=== PATIENT | female | born 1925 | race Caucasian/White ===

== ENCOUNTER → 2016-03-15 | Outpatient (CLI) | payer MEDICARE ==
[~2016-03-15] MED LIST: ACTO35TA PO; ALEN1TAB48 PO; ALLO100 PO; ASPI1TAB69 PO; ASPI81 PO; CALC600T34 PO; CINN500C PO; CLON0.5T PO; DIATRIZOATE MEGLUM/DIATRIZOATE SOD 120 ML BTL (for RAD DIAG) RECTAL ONE; FISH1000 PO; GLUC500C56 PO; GLUCTAB PO; ICAPCAP PO; MAXZ PO; METO25 PO; MULT-120 PO; NIAC100T3 PO; SIMV20TA PO; TAB-TAB PO; ZOCO80TA PO
--- NOTE | 2016-03-15 10:03 | RADRPT ---
EXAM DATE/TIME: 03/15/2016 09:01 [facility] COMPARISON: No previous studies available for comparison. INDICATIONS : Constipation 2-3 months FLUORO TIME: 2.0 minutes IMAGE COUNT: 17 CONTRAST: 1. G[facility]view MEDICAL HISTORY : Diverticulosis. SURGICAL HISTORY : colonoscopy 2 years ago. ENCOUNTER: Initial ACUITY: 3 months PAIN SCORE: 0/10 LOCATION: Bilateral abdomen FINDINGS: Preliminary film demonstrates surgical clips in the right upper quadrant. Moderate severity bony dege nerative findings of the lumbar spine. Left-sided hip screw.. Under fluoroscopic guidance a Gastrografin enema was performed. Contrast flowed to the hepatic flexur e. At that point there was prominent leakage of contrast. Patient could not retain further contrast. Numerous scattered colonic diverticula are seen. No gross evidence of narrowing. Moderate amount of s tool in the colon. Post evacuation radiograph unremarkable. CONCLUSION: 1. Numerous colonic diverticula. 2. Otherwise limited evaluation of the colon due to inability to retain contrast. Contrast flows to t he level of the hepatic flexure with no gross evidence of stricture. CT abdomen and pelvis with oral and IV contrast may also be beneficial given the difficulty with retention of rectal contrast. Titus Real MD on March 15, 2016 at 9:56 Board Certified Radiologist. This report was verified electronically.
== END ==
LOC: HRAD 08:13
PROVIDERS: ATTEND Colon & Rectal Surgery
DX: K56.69 Other intestinal obstruction (principal)
CPT/HCPCS: 74270; Q9963

== ENCOUNTER 2016-05-13 14:25 | Inpatient (IN) | payer MEDICARE ==
[~2016-05-13] VITALS: Ht 166.4 cm; Wt 70.0 kg
[2016-05-14] MEDS ORDERED: ICAPCAP PO (10:43)
[2016-05-14] MEDS ORDERED: CLON0.5T PO (10:43)
[2016-05-14] MEDS ORDERED: ASPI1TAB69 PO (10:43)
[2016-05-14] MEDS ORDERED: CINN500C PO (10:43)
[2016-05-14] MEDS ORDERED: FISH1000 PO (10:43)
[2016-05-14] MEDS ORDERED: ALEN1TAB48 PO (10:43)
[2016-05-14] MEDS ORDERED: MULT-120 PO (10:43)
[2016-05-14] MEDS ORDERED: SIMV20TA PO (10:43)
[2016-05-21] MEDS ORDERED: ONDANSETRON HCL 4 MG/2 ML VIAL IV PUSH ONE (08:28)
[2016-05-21] MEDS ORDERED: PHENYLEPH/NS 1000 MCG/10 ML SYR IV ONE (08:28)
[2016-05-21] MEDS ORDERED: LACTATED RINGER'S 1000 ML INJ 1,000 ML IV ONE (08:28)
[2016-05-21] MEDS ORDERED: ePHEDrine/NS 25 MG/5 ML SYR IV ONE (08:28)
[2016-05-21] MEDS ORDERED: PROPOFOL 200 MG/20 ML AMP IV ONE (08:28)
[2016-05-21] MEDS ORDERED: NORMOSOL R INJ 1,000 ML IV ONE (08:29)
[2016-05-21] MEDS ORDERED: METRONIDAZOLE 500 MG/100 ML ISONTONIC SOLN IV SCH (12:30)
[2016-05-21] MEDS ORDERED: INSULIN HUMAN REGULAR 1,000 UNITS/10 ML VIAL SQ PRN (12:30)
[2016-05-21] MEDS ORDERED: DEXT 5%-NACL 0.9% 1000 ML INJ 1,000 ML IV SCH (12:30)
[2016-05-21] MEDS ORDERED: POVIDONE IODINE 5% (ANTISEPSIS KIT) 4 APPLICATIONS EACH NARE PRN (12:30)
[2016-05-21] MEDS ORDERED: METOPROLOL TARTRATE 25 MG TAB PO PRN (12:30)
[2016-05-21] MEDS ORDERED: LACTATED RINGER'S 1000 ML IV PRN (12:30)
[2016-05-21] MEDS ORDERED: CHLORHEXIDINE GLUCONATE 2 % 1 PACK (2 CLOTHS) TOPICAL PRN (12:30)
[2016-05-21] MEDS ORDERED: SODIUM CHLORID 0.9% 500 ML IV PRN (12:30)
[2016-05-21] MEDS ORDERED: ALVIMOPAN 12 MG CAPSULE - On Call PO SCH (12:30)
[2016-05-21] MEDS ORDERED: ceFAZolin 1,000 MG/NS 100 ML IV SCH ×2 (12:30)
--- NOTE | 2016-05-21 12:50 | PD.HP.UP ---
H&P Update Note The Pre-Admit History and Physical Examination regarding the above named patient was reviewed (including, but not limited to, vital signs, heart, lungs, co-morbid conditions), and upon re-examination it is noted that: the patient's condition has not significantly changed since the last examination. Genaro Gutierres MD May 21, 2016 12:50
[2016-05-21 12:59] VITALS: BP 161/74; PULSE 76; RESP 18; TEMP 98.8; O2SAT 97
[2016-05-21] MEDS ORDERED: GLUCAGON 1 MG/ML VIAL ONE (13:26)
[2016-05-21] MEDS ORDERED: BUPIVACAINE HCL PF 0.5% 30 ML VIAL ONE ×2 (13:26→16:39)
[2016-05-21] MEDS ORDERED: DEXAMETHASONE SOD PHOS 4 MG/ML VIAL ONE (14:11)
[2016-05-21] MEDS ORDERED: SUGAMMADEX SODIUM 200 MG/2 ML VIAL IV PUSH ONE ×2 (14:11)
[2016-05-21] MEDS ORDERED: ARTIFICIAL TEARS OPTH OINT 3.5 APPLIC/3.5 GM TUBO ONE (14:11)
[2016-05-21] MEDS ORDERED: FAMOTIDINE 20 MG/2 ML VIAL ONE (14:11)
--- NOTE | 2016-05-21 17:25 | HHI.PR ---
Immediate Post Op Note Procedure Date: May 21, 2016 Pre Op Diagnosis: Diverticulitis Post Op Diagnosis: same, + polypoid lesion ileocecal valve Surgeon: Genaro Gutierres Dynamic Balancer(s): Cecy Procedure: Expl lap + LAR, colonoscopy, asc colectomy Findings: extensive tics knutson-colon, twisted in RS in pelvis, lg lesion at ileocecal valve liver, ut, ovaries nl Complications: none Specimen(s) removed: rectosigm, asc colon Estimated blood loss: 200cc Anesthesia: General Drains: None IVF Patient to: PACU Patient Condition: Good Genaro Gutierres MD May 21, 2016 17:25
[2016-05-21] MEDS ORDERED: ACETAMINOPHEN 325 MG TAB PO PRN (17:30)
[2016-05-21] MEDS ORDERED: BENZOCAINE 6 MG/MENTHOL 10 MG LOZENGE BUCCAL PRN (17:30)
[2016-05-21] MEDS ORDERED: POTASSIUM CHLOR 40 MEQ PREMIX 100 ML IV PRN (17:30)
[2016-05-21] MEDS ORDERED: SODIUM CHLORIDE 0.9% FLUSH 5 ML FLUSH IVF PRN (17:30)
[2016-05-21] MEDS ORDERED: POTASSIUM CHLOR 20 MEQ PREMIX 100 ML IV PRN (17:30)
[2016-05-21] MEDS ORDERED: ONDANSETRON HCL 4 MG/2 ML VIAL IV PRN (17:30)
[2016-05-21] MEDS ORDERED: MORPHINE SULFATE 30 MG/30 ML PCA IV SCH (17:30)
[2016-05-21] MEDS ORDERED: KETOROLAC TROMETHAMINE 30 MG/ML (IVP) VIAL IVP PRN (17:30)
[2016-05-21] MEDS ORDERED: Post-op Orders (for Pharmacy) MISC XX ONE (17:30)
[2016-05-21] MEDS ORDERED: ENALAPRILAT 2.5 MG/2 ML VIAL IV PRN (17:30)
[2016-05-21] MEDS ORDERED: NALOXONE HCL 0.4 MG/ML AMP IV PRN (17:30)
[2016-05-21] MEDS ORDERED: *morphine SULFATE 8 MG/ML PERIprocedure ONLY ONE (17:37)
[2016-05-21] MEDS ORDERED: fentaNYL CITRATE 250 MCG/5 ML AMP ONE (17:40)
[2016-05-21] MEDS ORDERED: MORPHINE SULFATE 4 MG/ML INJ ONE (17:40)
[2016-05-21] MEDS ORDERED: *HYDROmorphone PF 1 MG VIAL PERIprocedural Use ONLY ONE ×2 (18:07→18:46)
[2016-05-21] MEDS ORDERED: DO NOT ADM ANY ANTICOAGULANT DRUGS PRN (18:45)
[2016-05-21] MEDS: D5-NS + KCL 20 MEQ INJ 1,000 ML IV SCH (19:10)
[2016-05-21 19:30] VITALS: BP 150/76; PULSE 93; RESP 18; TEMP 97.6; O2SAT 96
[2016-05-21 20:00] VITALS: BP 164/85; PULSE 91; RESP 18; TEMP 97.9; O2SAT 98
[2016-05-21 21:00] VITALS: BP 150/70; PULSE 92; RESP 18; TEMP 97.8; O2SAT 98
[2016-05-21] MEDS ORDERED: BUPIVACAINE HCL PF 0.5% 30 ML VIAL NB SCH (21:00)
[2016-05-21] MEDS: clonazePAM 0.5 MG TAB PO SCH (21:00)
[2016-05-21] MEDS: SODIUM CHLORIDE 0.9% FLUSH 5 ML FLUSH IVF SCH (21:00)
[2016-05-21] MEDS: METOCLOPRAMIDE HCL 10 MG/2 ML VIAL IVS SCH (21:38)
[2016-05-21 22:00] VITALS: BP 159/74; PULSE 94; RESP 18; TEMP 97.8; O2SAT 99
[2016-05-21] MEDS: metroNIDAZOLE 500 MG INJ 100 ML IV SCH (22:15)
[2016-05-21 23:00] VITALS: BP 140/70; PULSE 81; RESP 18; TEMP 97.2; O2SAT 100
[2016-05-22] VITALS (12 sets, daily range): BP systolic 126–171; BP diastolic 68–88; PULSE 69–85; RESP 14–19; TEMP 97.1–99.5; O2SAT 94–99
[2016-05-22] MEDS: D5-NS + KCL 20 MEQ INJ 1,000 ML IV SCH ×5 (03:10→23:03)
[2016-05-22 05:53] LABS: AUTOMATED NEUTROPHIL # 13.5 TH/MM3 (1.8-7.7); BASOPHIL % 0.1 % (0.0-2.0); HEMATOCRIT 38.8 % (35.0-46.0); HEMO FLAGS DIFF FINAL; LYMPH % 21.6 % (9.0-44.0); MEAN CELL VOLUME 91.1 FL (80.0-100.0); MEAN CORPUSCULAR HEMOGLOBIN 31.5 PG (27.0-34.0); MEAN CORPUSCULAR HGB CONC 34.6 % (32.0-36.0); MONO % 5.8 % (0.0-8.0); NEUT % 72.5 % (16.0-70.0); PLATELET COUNT 125 TH/MM3 (150-450); RED BLOOD COUNT 4.26 MIL/MM3 (4.00-5.30); RED CELL DISTRIBUTION WIDTH 14.5 % (11.6-17.2); WHITE BLOOD COUNT 18.6 TH/MM3 (4.0-11.0)
[2016-05-22 06:03] LABS: BICARBONATE 26.9 MEQ/L (21.0-32.0); POTASSIUM 3.6 MEQ/L (3.5-5.1)
[2016-05-22 06:24] LABS: CALCIUM-PROTEIN CORRECTED 7.8 MG/DL (8.5-10.1)
[2016-05-22] MEDS: metroNIDAZOLE 500 MG INJ 100 ML IV SCH ×2 (06:38→16:08)
[2016-05-22] MEDS: PANTOPRAZOLE SOD 40 MG DELAYED RELEASE TAB PO SCH (09:00)
[2016-05-22] MEDS: SODIUM CHLORIDE 0.9% FLUSH 5 ML FLUSH IVF SCH ×2 (09:00→23:00)
[2016-05-22] MEDS ORDERED: ALVIMOPAN 12 MG CAPSULE - Post-op dosing PO SCH (09:00)
[2016-05-22] MEDS: PANTOPRAZOLE SODIUM 40 MG VIAL IVP SCH (09:45)
[2016-05-22] MEDS: METOCLOPRAMIDE HCL 10 MG/2 ML VIAL IVS SCH ×2 (09:45→23:00)
[2016-05-22] MEDS: PCA - TOTAL MG MORPHINE DELIVERED PER SHIFT SCH ×2 (14:00→22:00)
[2016-05-22] MEDS: clonazePAM 0.5 MG TAB PO SCH (22:59)
[2016-05-22] MEDS: ALVIMOPAN 12 MG CAPSULE PO SCH (22:59)
[2016-05-22] MEDS: ENALAPRILAT 1.25 MG/ML VIAL IV PRN (23:44)
[2016-05-23 00:14] VITALS: BP 177/81; PULSE 76; RESP 21; TEMP 98.7; O2SAT 95
[2016-05-23] MEDS: D5-NS + KCL 20 MEQ INJ 1,000 ML IV SCH ×4 (02:01→15:47)
[2016-05-23 04:00] VITALS: BP 167/77; PULSE 84; RESP 19; TEMP 97.8; O2SAT 94
[2016-05-23 04:21] LABS: AUTOMATED NEUTROPHIL # 10.4 TH/MM3 (1.8-7.7); BASOPHIL % 0.2 % (0.0-2.0); EOSINOPHIL % 0.3 % (0.0-4.0); HEMATOCRIT 37.2 % (35.0-46.0); HEMO FLAGS DIFF FINAL; MEAN CELL VOLUME 92.3 FL (80.0-100.0); MEAN CORPUSCULAR HEMOGLOBIN 31.5 PG (27.0-34.0); MEAN CORPUSCULAR HGB CONC 34.1 % (32.0-36.0); MONO % 6.4 % (0.0-8.0); NEUT % 72.1 % (16.0-70.0); PLATELET COUNT 118 TH/MM3 (150-450); RED BLOOD COUNT 4.03 MIL/MM3 (4.00-5.30); WHITE BLOOD COUNT 14.4 TH/MM3 (4.0-11.0)
[2016-05-23 04:41] LABS: BICARBONATE 29.2 MEQ/L (21.0-32.0); POTASSIUM 3.6 MEQ/L (3.5-5.1)
[2016-05-23] MEDS: ENALAPRILAT 1.25 MG/ML VIAL IV PRN (04:46)
[2016-05-23] MEDS: PCA - TOTAL MG MORPHINE DELIVERED PER SHIFT SCH (04:51)
[2016-05-23 08:00] VITALS: BP 155/68; PULSE 77; RESP 19; TEMP 97.8; O2SAT 95
[2016-05-23] MEDS: PANTOPRAZOLE SOD 40 MG DELAYED RELEASE TAB PO SCH (08:27)
[2016-05-23] MEDS: SODIUM CHLORIDE 0.9% FLUSH 5 ML FLUSH IVF SCH ×2 (08:27→20:33)
[2016-05-23] MEDS: METOCLOPRAMIDE HCL 10 MG/2 ML VIAL IVS SCH ×2 (08:30→20:32)
[2016-05-23] MEDS: PANTOPRAZOLE SODIUM 40 MG VIAL IVP SCH (08:30)
[2016-05-23] MEDS: ALVIMOPAN 12 MG CAPSULE PO SCH ×2 (08:30→20:31)
[2016-05-23] MEDS: ACETAMINOPHEN/HYDROcodone 325 MG/5 MG TAB PO PRN ×2 (10:25→16:18)
--- NOTE | 2016-05-23 11:22 | MP ---
cc: NORRIS APONTE M.D. DATE OF SURGERY May 21, 2016 PREOPERATIVE DIAGNOSES 1. Diverticular disease with obstruction of the rectosigmoid. 2. Abnormal cecum and ileocecal valve. PROCEDURE 1. Exploratory laparotomy with proctosigmoidectomy and low pelvic anastomosis. 2. Intraoperative colonoscopy. 3. Ascending colectomy. POSTOPERATIVE DIAGNOSES 1. Extensive diverticular disease with narrowing and obstruction of the rectosigmoid. 2. Pancolonic diverticular disease. 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 SURGEON Dr. Aponte GRILL PREP COOK Dr. Live Sam PROCEDURE The patient was placed in the supine position. After adequate general anesthesia her legs were placed in the [place] stirrups and supported appropriately. The abdomen and perineum were then prepped with Betadine solution and draped in the usual sterile fashion. With Dr. Sam 's assistance the abdomen was opened through a supraumbilical transverse incision dividing the rectus muscles with electrocautery. Exploration revealed extensive diverticulosis throughout the entire colon, very severe within the rectosigmoid which was stuck down into the pelvis and kind of torsed and twisted, obstructing the lumen. There was some chronic thickening to the bowel wall as well. The proximal colon was palpated very carefully and even the appendix appeared to have diverticular disease. The ileocecal valve was somewhat prominent but was not really hard. The small bowel was run from the ligament of Treitz down to the ileocecal valve and felt to be normal. The liver was palpably normal. The gallbladder had been previously removed. The stomach and duodenum were normal. The uterus and ovaries were appropriate for the patient's age. Great vessels were of normal caliber and moderately calcified. First the sigmoid colon was mobilized medially by dividing along the white line of Toldt. The left ureter was identified and carefully preserved. Dissection then proceeded taking the colon off the retroperitoneum, mobilizing the splenic flexure, entering the lesser sac and taking the gastrocolic omentum off the transverse colon. The right retroperitoneal space was then opened and the bowel dissected off the presacral fascia. The pedicle for the superior hemorrhoidal vessels were identified and divided between Jeannie's obtaining hemostasis with Vicryl ties. Dissection then proceeded down to the pelvis mobilizing the bowel off the presacral fascia to the pelvic floor and, at a point in the proximal rectum, the mesorectum was taken between Jeannie's and securing the distal vessel with a Vicryl tie. The remainder of the mesentery was taken with electrocautery. The bowel was then finally divided between a pursestring suture device and a Marisel clamp. The bowel was then sized to reach the rectal pouch, taking the left colic vessels for full left mobilization due to the extensive diverticular changes. At the appropriate point, the marginal artery was taken and the bowel divided between extensive diverticular disease using a pursestring suture device and a Marisel clamp. The end of the bowel was sized to accept an EEA stapling anvil and this was secured with a pursestring suture. Dr. Sam then inserted the EEA stapling instrument transanally under direct vision. It was brought up to the end of the rectal pouch and the pursestring suture tied. The stapler was then reassembled, the bowel aligned properly, the staple closed and fired. Upon withdrawal two complete doughnuts of tissue were seen. The colonoscope was then inserted and with abdominal assistance passed up through the rectosigmoid around to the transverse colon and down to the cecum. The ileocecal valve was seen and felt to be very unusual with polypoid changes and possibly consistent with intussusception. The scope was therefore gradually withdrawn noting normal mucosa throughout the distal colon. In the region of the anastomosis, the bowel was insufflated and found to be airtight. Due to the abnormal ileocecal valve, the right colon was fully mobilized and an avascular plane created in the right colon dividing the bowel using the NAKUL stapling device. The ileocolic vessels were divided and ligated proximally twice with a Vicryl tie. The bowel was divided in the terminal ileum again using a NAKUL stapling device after taking the associated mesentery. Bowel continuity was then restored by firing the NAKUL stapler across the antimesenteric ends of the bowel, closing the enterotomy with a TA-60 stapler. The mesenteric defect was closed with a running Vicryl suture and a 3-0 Vicryl crotch suture was placed as well. The abdomen was then irrigated copiously with normal saline, adequate hemostasis achieved at all sites. The omentum was passed down the left gutter and wrapped around the anastomosis. The transverse incision was then closed anatomically in two layers using #1 PDS sutures to reapproximate the respective fascial layers. On-Q catheters were placed into the rectus sheath on both sides and brought out through subcutaneous tunnels above the transverse incision. The subcu tissue was irrigated copiously and the skin closed with a running subcuticular Vicryl suture. The wound area was washed with normal saline and dried, sterile dressing of Telfa and gauze applied. The patient tolerated the procedure quite well and was brought to the recovery room in stable condition. Sponge and needle counts were correct at the end of the procedure. MD PATRIZIA Vicente/FABRICIO /1:01 PM /11:08 AM
[2016-05-23 11:59] VITALS: BP 162/69; PULSE 69; RESP 20; TEMP 98.3; O2SAT 96
[2016-05-23 20:00] VITALS: BP 171/78; PULSE 78; RESP 20; TEMP 99.6; O2SAT 95
[2016-05-23] MEDS: clonazePAM 0.5 MG TAB PO SCH (20:31)
--- NOTE | 2016-05-23 22:19 | HHI.PR ---
Subjective Remarks C/R Surg POD # 2 afebrile, VSS UO good JORDYN min adv diet Objective - Vital Signs Date Time Temp Pulse Resp B/P Pulse Ox O2 Delivery O2 Flow Rate FiO2 05/23/16 11:59 98.3 69 20 162/69 96 05/22/16 20:00 Room Air 05/22/16 00:00 3.00 Result Diagram: 05/23/16 0319 05/23/169 A/P Assessment and Plan Imp: adv diet, OOB decr IVF PT Genaro Gutierres MD May 23, 2016 22:19
[2016-05-24] VITALS: BP 158/80; PULSE 72; RESP 20; TEMP 99; O2SAT 93
[2016-05-24] MEDS: D5-NS + KCL 20 MEQ INJ 1,000 ML IV SCH ×2 (00:03→09:00)
[2016-05-24 08:00] VITALS: BP 193/91; PULSE 87; RESP 17; TEMP 95.5; O2SAT 96
[2016-05-24] MEDS: ALVIMOPAN 12 MG CAPSULE PO SCH ×2 (08:48→21:10)
[2016-05-24] MEDS: ACETAMINOPHEN/HYDROcodone 325 MG/5 MG TAB PO PRN (08:49)
[2016-05-24] MEDS: METOCLOPRAMIDE HCL 10 MG/2 ML VIAL IVS SCH (08:49)
[2016-05-24] MEDS: PANTOPRAZOLE SOD 40 MG DELAYED RELEASE TAB PO SCH (08:49)
[2016-05-24] MEDS: PANTOPRAZOLE SODIUM 40 MG VIAL IVP SCH (08:54)
[2016-05-24] MEDS: SODIUM CHLORIDE 0.9% FLUSH 5 ML FLUSH IVF SCH ×2 (08:54→21:00)
[2016-05-24 09:15] VITALS: BP 144/60
[2016-05-24 12:00] VITALS: BP 143/65; PULSE 81; RESP 16; TEMP 96.8; O2SAT 97
[2016-05-24 16:00] VITALS: BP 182/74; PULSE 78; RESP 12; TEMP 95.8; O2SAT 97
[2016-05-24] MEDS ORDERED: METOCLOPRAMIDE HCL 10 MG/2 ML VIAL IVS PRN (16:30)
--- NOTE | 2016-05-24 16:33 | HHI.PR ---
Subjective Remarks C/R Surg POD # 3 afebrile, VSS UO good JORDYN min adv diet acosta out in AM Objective - Vital Signs Date Time Temp Pulse Resp B/P Pulse Ox O2 Delivery O2 Flow Rate FiO2 05/24/16 09:15 144/60 05/24/16 08:00 95.5 87 17 96 05/23/16 20:00 Room Air 05/22/16 00:00 3.00 Result Diagram: 05/23/16 0319 05/23/16318 Objective Remarks PE alert Abd - soft, wound dry, non - tender A/P Assessment and Plan Imp: adv diet, OOB decr IVF PT DC plans Genaro Gutierres MD May 24, 2016 16:33
[2016-05-24 20:30] VITALS: BP 148/64; PULSE 79; RESP 18; TEMP 98.2; O2SAT 95
[2016-05-24] MEDS: clonazePAM 0.5 MG TAB PO SCH (21:10)
[2016-05-25 00:05] VITALS: BP 134/73; PULSE 68; RESP 17; TEMP 99; O2SAT 97
[2016-05-25 08:00] VITALS: BP 139/73; PULSE 71; RESP 17; TEMP 97.7; O2SAT 97
[2016-05-25] MEDS: PANTOPRAZOLE SOD 40 MG DELAYED RELEASE TAB PO SCH (08:47)
[2016-05-25] MEDS: SODIUM CHLORIDE 0.9% FLUSH 5 ML FLUSH IVF SCH ×2 (08:47→21:56)
[2016-05-25] MEDS: ACETAMINOPHEN/HYDROcodone 325 MG/5 MG TAB PO PRN (08:47)
[2016-05-25] MEDS: PANTOPRAZOLE SODIUM 40 MG VIAL IVP SCH (08:47)
[2016-05-25] MEDS: ALVIMOPAN 12 MG CAPSULE PO SCH ×2 (08:47→21:54)
--- NOTE | 2016-05-25 10:00 | HHI.PR ---
Subjective Remarks C/R Surg POD # 4 afebrile, VSS UO good adv diet acosta out i Objective - Vital Signs Date Time Temp Pulse Resp B/P Pulse Ox O2 Delivery O2 Flow Rate FiO2 05/25/16 08:00 97.7 71 17 139/73 97 05/23/16 20:00 Room Air 05/22/16 00:00 3.00 Result Diagram: 05/23/169 05/23/16318 Objective Remarks PE alert Abd - soft, wound dry, non - tender A/P Assessment and Plan Imp: adv diet, OOB decr IVF PT DC plans Genaro Gutierres MD May 25, 2016 10:00
[2016-05-25 12:00] VITALS: BP 144/76; PULSE 77; RESP 17; TEMP 96.7; O2SAT 97
[2016-05-25 16:00] VITALS: BP 138/66; PULSE 78; RESP 16; TEMP 96.8; O2SAT 98
[2016-05-25] MEDS: D5-NS + KCL 20 MEQ INJ 1,000 ML IV SCH (17:47)
[2016-05-25 20:00] VITALS: BP 121/64; PULSE 80; RESP 17; TEMP 99; O2SAT 94
[2016-05-25] MEDS: clonazePAM 0.5 MG TAB PO SCH (21:55)
[2016-05-26 00:29] VITALS: BP 155/71; PULSE 73; RESP 17; TEMP 98.5; O2SAT 94
[2016-05-26 08:00] VITALS: BP 135/62; PULSE 65; RESP 18; TEMP 98.7; O2SAT 97
[2016-05-26] MEDS: PANTOPRAZOLE SODIUM 40 MG VIAL IVP SCH (09:00)
[2016-05-26] MEDS: SODIUM CHLORIDE 0.9% FLUSH 5 ML FLUSH IVF SCH ×2 (09:00→21:00)
[2016-05-26] MEDS: ALVIMOPAN 12 MG CAPSULE PO SCH ×2 (09:41→21:14)
[2016-05-26] MEDS: PANTOPRAZOLE SOD 40 MG DELAYED RELEASE TAB PO SCH (09:41)
[2016-05-26] MEDS: D5-NS + KCL 20 MEQ INJ 1,000 ML IV SCH ×2 (10:27→21:14)
--- NOTE | 2016-05-26 10:49 | HHI.PR ---
Subjective Remarks C/R Surg POD # 5 afebrile, VSS UO good adv diet Objective - Vital Signs Date Time Temp Pulse Resp B/P Pulse Ox O2 Delivery O2 Flow Rate FiO2 05/26/16 08:00 98.7 65 18 135/62 97 05/23/16 20:00 Room Air Result Diagram: 05/23/1631805/23/16318 Objective Remarks PE alert Abd - soft, wound dry, non - tender A/P Assessment and Plan Imp: adv diet, OOB decr IVF - hep lock PT DC plans Genaro Gutierres MD May 26, 2016 10:49
--- NOTE | 2016-05-26 10:50 | HHI.FF ---
Face to Face Verification Diagnosis: (1) Diverticulitis Physical Therapy Order: Evaluate and Treat, Improve ambulation, Strength and gait training I have seen patient Trinidad Costa on 05/26/16. My clinical findings support the need for the requested home health care services because: Ltd mobility - disease progression Deconditioned w/ increased weakness Limited ability to care for self High risk of falls I certify that my clinical findings support that this patient is homebound because: Post-op weakness Impaired cognitive ability/safety Unsteady gait/balance Genaro Gutierres MD May 26, 2016 10:50
[2016-05-26 12:00] VITALS: BP 132/61; PULSE 73; RESP 16; TEMP 97.5; O2SAT 96
[2016-05-26 16:00] VITALS: BP 147/71; PULSE 75; RESP 17; TEMP 97.4; O2SAT 97
[2016-05-26 20:00] VITALS: BP 149/70; PULSE 88; RESP 17; TEMP 98.3; O2SAT 97
[2016-05-26] MEDS: clonazePAM 0.5 MG TAB PO SCH (21:14)
[2016-05-27 00:55] VITALS: BP 152/68; PULSE 76; RESP 18; TEMP 98.8; O2SAT 97
[2016-05-27 08:00] VITALS: BP 153/77; PULSE 64; RESP 18; TEMP 98.1; O2SAT 97
[2016-05-27] MEDS: SODIUM CHLORIDE 0.9% FLUSH 5 ML FLUSH IVF SCH (08:30)
[2016-05-27] MEDS: ALVIMOPAN 12 MG CAPSULE PO SCH (08:30)
[2016-05-27] MEDS: PANTOPRAZOLE SOD 40 MG DELAYED RELEASE TAB PO SCH (08:30)
[2016-05-27] MEDS: ACETAMINOPHEN/HYDROcodone 325 MG/5 MG TAB PO PRN (08:30)
[2016-05-27] MEDS: PANTOPRAZOLE SODIUM 40 MG VIAL IVP SCH (08:30)
[2016-05-27 11:00] VITALS: BP 137/63; PULSE 70; RESP 17; TEMP 96.3; O2SAT 100
--- NOTE | 2016-05-27 14:24 | HHI.PR ---
Subjective Remarks C/R Surg POD # 6 afebrile, VSS UO good adv diet Objective - Vital Signs Date Time Temp Pulse Resp B/P Pulse Ox O2 Delivery O2 Flow Rate FiO2 05/27/16 11:00 96.3 70 17 137/63 100 05/23/16 20:00 Room Air Result Diagram: 05/23/1631805/23/16318 Objective Remarks PE alert Abd - soft, wound dry, non - tender A/P Assessment and Plan Imp: adv diet, OOB decr IVF - hep lock PT DC plans to rehab Genaro Gutierres MD May 27, 2016 14:24
[2016-05-27 16:00] VITALS: BP 168/74; PULSE 71; RESP 18; TEMP 96.6; O2SAT 98
--- NOTE | 2016-07-21 09:00 | MD ---
cc: NORRIS APONTE M.D.,NICOLA Emerson MD ADMISSION DATE: 05/21/2016 DISCHARGE DATE: 05/27/2016 ADMISSION DIAGNOSIS Diverticulitis with obstruction, abnormal ileocecal valve. DISCHARGE DIAGNOSES Extensive diverticular disease with narrowing and obstruction of the rectosigmoid, polypoid tumor of the ileocecal valve, large tubulovillous adenoma. PROCEDURES May 21, 2016. Exploratory laparotomy with proctosigmoidectomy and low pelvic anastomosis, intraoperative colonoscopy and ascending colectomy. HISTORY OF PRESENT ILLNESS Ms. Costa is an 89-year-old female who has been seen for quite a while with known diverticular disease of the rectosigmoid with narrowing. More recently she has had increasing amounts of pain and cramping with obstructive symptoms despite maximum medical management. CT scan showed extensive diverticular disease of the rectosigmoid and possibly even a mass in the ileocecal region. The patient has continued to move her bowels although required some stool softeners and laxatives. Denies any real distension but does have gas, cramps and feels uncomfortable at times. No nausea or vomiting. Denies any rectal bleeding or melena. Appetite has been good and she denies any weight loss. Medical and surgical history reviewed extensively in the admitting history and physical. PERTINENT PHYSICAL A very pleasant older female in no acute distress. Abdomen was very soft and benign. No distension. Slight tympany. No rebound or guarding or masses noted. Anal inspection reveals benign canal. Digital exam revealed good to fair tone with no pelvic masses or tenderness. HOSPITAL COURSE After admission, the patient was taken to the operating room on May 21, 2016 at which point she was found to have extensive diverticular disease of the rectosigmoid with narrowing and obstruction. After resection colonoscopy confirmed a large villous type tumor around the ileocecal valve and she underwent a segmental resection of the ascending colon. She tolerated the procedure quite well. Initially she was stabilized in the intensive care unit. Her GI tract began to work rather promptly and her diet was advanced accordingly. She did require some physical therapy for strengthening of her muscles and ambulation. She also required slow tapering of her intravenous fluids for fluid management. She gradually was eating well enough to reduce the IV fluids and Hep-Lock her IV. Bowel movements slowed to a reasonable level and she was considered for discharge, initially home, and then after discussion with the family to rehab for additional physical therapy and muscle strengthening. Final pathology report did reveal rectosigmoid with extensive diverticulosis and diverticulitis with narrowing of the lumen. 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 No cancer was identified. DISCHARGE INSTRUCTIONS The patient was discharged eating a regular diet. She was encouraged to ambulate daily avoiding any heavy lifting or straining. All preop medications were to be resumed. The patient will be seen in the office in one weeks' time for routine follow-up. Any problems that arise prior to the office visit she was encouraged to call for more urgent attention. MD PATRIZIA Vicente/GREG /11:15 PM /5:08 AM
== END 2016-05-27 17:42 | DRG 330 ==
LOC: HSDI 05-21 11:44 → N07B 05-22 08:13
PROVIDERS: ADMIT Colon & Rectal Surgery; ATTEND Colon & Rectal Surgery
PROC: 0DBN0ZZ Excision of Sigmoid Colon, Open Approach (ICD-10-PCS; 2016-05-21)
PROC: 0DTK0ZZ Resection of Ascending Colon, Open Approach (ICD-10-PCS; 2016-05-21)
PROC: 0DTB0ZZ Resection of Ileum, Open Approach (ICD-10-PCS; 2016-05-21)
PROC: 0DBP0ZZ Excision of Rectum, Open Approach (ICD-10-PCS; principal; 2016-05-21 14:13)
DX: K57.50 Diverticulosis of both small and large intestine without perforation or abscess without bleeding (principal); K56.69 Other intestinal obstruction; K38.2 Diverticulum of appendix; E78.5 Hyperlipidemia, unspecified; D12.2 Benign neoplasm of ascending colon
CPT/HCPCS: 80048; 84155; 85025; 86850; 86900; 86901; 88307; 88309; 94150; C9113; J0690; J1100; J1170; J1610; J2270; J2370; J2405; J2765; J3010; J3480; J7120

== ENCOUNTER → 2016-05-14 | Outpatient (CLI) | payer MEDICARE ==
[~2016-05-14] MED LIST changes: -DIATRIZOATE MEGLUM/DIATRIZOATE SOD 120 ML BTL (for RAD DIAG) RECTAL ONE
[2016-05-14 11:33] LABS: AUTOMATED NEUTROPHIL # 4.5 TH/MM3 (1.8-7.7); BASOPHIL % 0.5 % (0.0-2.0); EOSINOPHIL # 0.2 TH/MM3 (0-0.4); EOSINOPHIL % 1.8 % (0.0-4.0); HEMO FLAGS DIFF FINAL; LYMPH % 43.8 % (9.0-44.0); LYMPHOCYTE # 4.1 TH/MM3 (1.0-4.8); MEAN CELL VOLUME 92.5 FL (80.0-100.0); MEAN CORPUSCULAR HEMOGLOBIN 30.9 PG (27.0-34.0); MEAN CORPUSCULAR HGB CONC 33.4 % (32.0-36.0); MONO % 5.9 % (0.0-8.0); PLATELET COUNT 126 TH/MM3 (150-450); RED BLOOD COUNT 4.54 MIL/MM3 (4.00-5.30); WHITE BLOOD COUNT 9.4 TH/MM3 (4.0-11.0)
--- NOTE | 2016-05-14 11:38 | RADRPT ---
EXAM DATE/TIME: 05/14/2016 11:20 [facility] COMPARISON: GASTROGRAFIN ENEMA, March 15, 2016, 9:01. INDICATIONS : Evaluate for pneumonia, pneumothorax, or communicable disease. Pre op for colon resection. MEDICAL HISTORY : None. SURGICAL HISTORY : None. ENCOUNTER: Initial ACUITY: 1 day PAIN SCORE: 0/10 LOCATION: Bilateral chest FINDINGS: The heart is at the upper limits of normal in size. The mediastinal contours are within normal limits . There are chronic interstitial changes and hyperinflation consistent with COPD. There are degenerat nevaeh changes throughout the spine. CONCLUSION: 1. COPD changes. No acute abnormality. Lisandro Stanley MD on May 14, 2016 at 11:36 Board Certified Radiologist. This report was verified electronically.
[2016-05-14 11:41] LABS: BLOOD, URINE NEG (NEG); COMMENT (UR) CULT NOT INDICATED; CULTURE IF INDICATED CULT NOT INDICATED; GLUCOSE,URINE NEG (NEG); KETONE, URINE NEG (NEG); MUCUS URINE FEW /lpf (OCC); NITRITE,URINE NEG (NEG); URINE COLOR YELLOW (YELLW/STRAW)
[2016-05-14 11:43] LABS: APTT (PATIENT) 24.1 SEC (24.3-30.1); PROTHROMBIN TIME - PATIENT 11.1 SEC (9.8-11.6)
[2016-05-14 11:52] LABS: ALKALINE PHOSPHATASE 69 U/L (45-117); ALT (GPT) 53 U/L (10-53); ANION GAP 8 MEQ/L (5-15); AST (GOT) 37 U/L (15-37); BICARBONATE 31.1 MEQ/L (21.0-32.0); BLOOD UREA NITROGEN 14 MG/DL (7-18); CHLORIDE 105 MEQ/L (98-107); GLOMERULAR FILTRATION RATE 59 ML/MIN (>89); GLUCOSE,FASTING 102 MG/DL (74-99); POTASSIUM 3.8 MEQ/L (3.5-5.1); SODIUM (NA) 144 MEQ/L (136-145); TOTAL BILIRUBIN ADULT 1.1 MG/DL (0.2-1.0)
--- NOTE | 2016-05-14 17:12 | EKG ---
Date Performed: 05/14/2016 Time Performed: 10:27:45 PTAGE: 89 years EKG: Sinus rhythm POSSIBLE RIGHT VENTRICULAR CONDUCTION DELAY SEPTAL MYOCARDIAL INFARCTION, PROBABLY OLD WHEN COMPARED TO PRIOR TRACING PATIENT NOW MEETS CRITERIA SEPTAL HI- AGE UNDETERMINED. Clinical correlation is rec ommended ABNORMAL ECG PREVIOUS TRACING 11/30/2007 @11.52.54 DOCTOR: Citlali Olvera Interpretating Date/Time 05/14/2016 17:11:28
== END ==
LOC: CPRE 10:05
PROVIDERS: ATTEND Colon & Rectal Surgery
DX: Z01.810 Encounter for preprocedural cardiovascular examination (principal); Z01.811 Encounter for preprocedural respiratory examination; Z01.812 Encounter for preprocedural laboratory examination; Z79.01 Long term (current) use of anticoagulants; K56.60 Unspecified intestinal obstruction; R94.31 Abnormal electrocardiogram [ECG] [EKG]
CPT/HCPCS: 36415; 71020; 80053; 81001; 85025; 85610; 85730; 93005